=== PATIENT | female | born 1990 | race Caucasian/White ===

== ENCOUNTER 2023-03-25 11:41 | Outpatient (CLI) | payer MEDICAID, SELFPAY ==
--- NOTE | 2023-03-25 06:00 | DI.RAD_ITS ---
Exam(s) XR PAIN CLINIC SACRIOILIAC 2V EXAM: XR PAIN CLINIC SACRIOILIAC 2V CLINICAL HISTORY: DX: Right Sacroiliac Joint Dysfunction. TECHNIQUE: Fluoroscopy was provided for the referring physician for guidance with performing pain cl inic injection procedure. COMPARISON: No exams were available for comparison FINDINGS: Please see procedure note for details. Fluoro time: 14 seconds RADIATION DOSE DELIVERED: Ka,r=5.27 mGy
[2023-03-25 11:52] VITALS: BP 114/83; PULSE 86; RESP 20; TEMP 36.4; O2SAT 98
[2023-03-25 12:30] VITALS: BP 127/71; PULSE 84; RESP 22; O2SAT 100
[2023-03-25] MEDS: methylPREDNISolone ACETATE 80 MG/ML VIAL IJ (12:32)
[2023-03-25] MEDS: Omnipaque 240 MG/ML 50 ML BTL IJ (12:32)
--- NOTE | 2023-03-30 08:36 | PDOC.PAIN_ITS ---
Date of service: 03/25/23 Time of Service: 12:30 Pain Managment Procedure Note Procedure Note Procedure Note: PROCEDURE NOTE RIGHT INTRA-ARTICULAR SACROILIAC JOINT INJECTION Date of Service: March 25, 2023 Patient: Radhika Rose Provider: John Packer DO, MPH COMMENTS: I previously evaluated the patient in the office and their symptoms in relation to the sacroiliac joint pain have remained the same. Pre-operative diagnosis: Sacroiliac joint dysfunction Post-operative diagnosis: Same Pre-procedure pain: VAS= 7/10 Radhika Rose has been referred to [facility] for a Right intra-articular Sacroiliac joint injection. Radhika was interviewed and the medical record reviewed. There were no medical, pharmacologic, radiographic or other structural contraindications to attempting a fluoroscopically-guided, contrast-enhanced, intra-articular Sacroiliac joint injection. The risks, benefits, and potential side effects of this procedure w ere reviewed with the patient. Questions and concerns were addressed. After it was clear that Radhika was fully informed about the procedure, the printed consent form was signed by the patient and myself. Radhika was placed in the prone position on the fluoroscopy table and an automated blood pressure cuff, 3 lead EKG, and pulse oximeter were applied. The skin entry point for approaching the Right sacroiliac joint was identified under the most advantageous fluoroscopic view and marked. Following thorough Chlorhexadine preparation of the skin and draping with sterile surgical drapes, 2 mls of 1% lidocaine was infiltrated into the skin at the entry point and the surrounding subcutaneous tissues. Next, a 3.5 22G spinal needle was placed under fluoroscopic guidance into the Right sacroiliac joint. Intra-articular placement was confirmed by a clear arthrogram resulting from the injection of 0.25ml of Omnipaque-240. Next, 1 ml of Depo- Medrol 80 mg/ml was injected intra- articularly with an initial reproduction of a significant component of the usual pain. This was followed with 1 ml of 1% Lidocaine. The needle was then removed without difficulty. (49 ml of Omnipaque-240 was wasted). Radhika's vital signs were stable throughout the procedure and were as recorded in nursing records. Follow up plans and appointments were discussed with Radhika. Post procedure instructions were given as documented in nursing records. Having met discharge criteria, Radhika was [facility] from the [facility]. COMMENTS: Post-procedure pain: VAS= 0/10. If the patient receives at least 50% improvement in pain and/or function for at least 3 months, this procedure can be repeated if needed. I personally performed this entire procedure. JOHN PACKER DO, MPH ABPMR-subspecialty board certification in Pain Medicine [facility]
== END 2023-03-25 11:42 | disposition home or self-care (01) ==
PROVIDERS: PCP Internal Medicine; Visit Provider Preventive Medicine Occupational Medicine
DX: M46.1 Sacroiliitis, not elsewhere classified (principal)
CPT/HCPCS: 00123; 27096; 72200; J1040; Q9967

== ENCOUNTER → 2024-01-06 01:24 | Outpatient (CLI) | payer MEDICAID, SELFPAY ==
--- NOTE | 2024-01-06 | DI.MRI_ITS ---
Exam(s) MR LUMBAR SPINE WO EXAM: MR LUMBAR SPINE WO CLINICAL HISTORY: LUMBAR SPONDYLOSIS, M47.816, LUMBAR DISC HERNIATION, M51.26. TECHNIQUE: Multiplanar multisequence MRI of the Lumbar spine was performed. COMPARISON: No exams were available for comparison FINDINGS: Conus medullaris is at normal level. There is no evidence of conus mass nor subjacent clumping of in trathecal nerve roots to suggest arachnoiditis. The distal thecal sac appears unremarkable.There is no evidence of Tarlov intrasacral cysts nor other significant findings within the sacral canal Bones:There are no fractures nor ominous osseous lesions in the lumbar vertebral bodies and visualize d sacrum. With respect to the individual levels... T12-L1: Unremarkable L1-2: Normal disc height and signal. No disc herniation nor central canal stenosis.No foraminal steno sis L2-3: Normal disc height. No disc herniation nor central canal stenosis.No foraminal stenosis.No face t arthropathy. L3-4: Normal disc height. Mild annular bulging. No prominent disc herniation. Central canal dimens ions lower normal. No foraminal stenosis. Facet joints unremarkable. L4-5: Normal disc height. There is a prominent central and bilateral paracentral disc herniation at this level which extends posteriorly 12 mm, elevating the posterior longitudinal ligament. This disc protrusion is 1.5 cm wide. It significantly compresses the thecal sac. It does not extend into the exiting neural foramina on either side. There is no foraminal stenosis on either side. Facet joint s unremarkable. L5-S1: No disc herniation. No canal stenosis. No foraminal stenosis. No facet arthropathy. No par s defects. Soft tissues: The right kidney is noted to be atrophic. It does not appear hydronephrotic. Left ki dney size is normal. IMPRESSION: 1. There is a very large disc herniation at the L4-5 level as described above. This significantly im presses the thecal sac. The disc herniation does not extend into the exiting neural foramen on eithe r side. 2. Other levels appear unremarkable. 3. No facet arthropathy evident Incidentally noted is an atrophic right kidney in this 33-year-old patient DATA REPOSITORY:
== END ==
PROVIDERS: PCP Internal Medicine; Visit Provider Physician Assistant Surgical
DX: M51.26 Other intervertebral disc displacement, lumbar region (principal)
CPT/HCPCS: 72148